=== PATIENT | male | born 1955 ===

== ENCOUNTER 2017-08-20 17:59 | Emergency (ER) | payer OTHER, SELFPAY ==
[2017-08-20 18:49] VITALS: BP 130/80; PULSE 78; RESP 18; TEMP 98; O2SAT 98
--- NOTE | 2017-08-20 20:42 | ED PDOC ---
HPI: General Adult Time Seen by Provider: 08/20/17 20:27 Chief Complaint (Nursing): Upper Extremity Problem/Injury Chief Complaint (Provider): Neck Pain History Per: Patient Additional Complaint(s): 62 year old non-domiciled male presents to ED for evaluation of neck pain ongoing for several months. Patient states a few months back he injured his neck and has had pain since then. Patient has not been taking any medicine for pain relief. PMD: none Past Medical History Reviewed: Historical Data, Nursing Documentation, Vital Signs Vital Signs: Last Vital Signs Temp 98 F 08/20/17 18:44 Pulse 78 08/20/17 18:44 Resp 18 08/20/17 18:44 BP 130/80 08/20/17 18:44 Pulse Ox 98 08/20/17 21:57 - Medical History PMH: No Chronic Diseases - Surgical History Surgical History: No Surg Hx - Family History Family History: States: No Known Family Hx - Living Arrangements Living Arrangements: Other (non-domiciled) - Social History Current smoker - smoking cessation education provided: No Alcohol: Occasional Drugs: Denies - Home Medications Home Medications: Ambulatory Orders Medication Instructions Recorded Nystatin/Triamcin 1 appful TP Q12 #1 oint...g. 03/26/15 [Nystatin-Triamcinolone Ointm] Gabapentin [Neurontin] 300 mg PO TID #30 cap 08/10/17 valACYclovir [Valtrex] 1 gm PO BID #14 tab 08/10/17 Cyclobenzaprine [Cyclobenzaprine 10 mg PO TID PRN #20 tab 08/20/17 HCl] Naproxen [Naprosyn] 500 mg PO BID #20 tab 08/20/17 - Allergies Allergies/Adverse Reactions: Allergies Allergy/AdvReac Type Severity Reaction Status Date / Time No Known Allergies Allergy Unverified 08/10/17 14:29 Review of Systems ROS Statement: Except As Marked, All Systems Reviewed And Found Negative Constitutional: Negative for: Fever Cardiovascular: Negative for: Chest Pain Musculoskeletal: Positive for: Neck Pain Neurological: Negative for: Headache, Dizziness Physical Exam - Reviewed Nursing Documentation Reviewed: Yes Vital Signs Reviewed: Yes - Physical Exam Appears: Positive for: Non-toxic, No Acute Distress Head Exam: Positive for: ATRAUMATIC, NORMAL INSPECTION, NORMOCEPHALIC Skin: Positive for: Normal Color. Negative for: Rash Eye Exam: Positive for: Normal appearance Neck: Positive for: Pain On Movement Of Neck (kyphosis noted to cervical spine with diffuse tenderness posteriorly, palpable muscle spasm noted) Cardiovascular/Chest: Positive for: Regular Rate, Rhythm. Negative for: Chest Non Tender Respiratory: Positive for: Normal Breath Sounds. Negative for: Respiratory Distress Back: Negative for: Vertebral Tenderness Neurologic/Psych: Positive for: Alert, Oriented (x3) - ECG O2 Sat by Pulse Oximetry: 98 (RA) Pulse Ox Interpretation: Normal - Other Rad cervical spine x-ray X-Ray: Interpreted by Me, Viewed By Me X-Ray Interpretation: kyphosis with no fracture or dislocation Medical Decision Making Medical Decision Making: Time: 2032 Initial Impression: 62 year old male with neck pain Initial Plan: --Cervical Spine AP & Lateral [RAD] --Patient given Flexeril 10mg and Motrin 600mg Patient noted to fall asleep in ED chair. He is aware of x-ray results. Prescriptions for Naprosyn and Flexeril provided and patient was referred to clinic for follow-up. Scribe Attestation: Documented by Jonas Kat, acting as a scribe for Nora Palma PA-C Provider Scribe Attestation: All medical record entries made by the Scribe were at my direction and personally dictated by me. I have reviewed the chart and agree that the record accurately reflects my personal performance of the history, physical exam, medical decision making, and the department course for this patient. I have also personally directed, reviewed, and agree with the discharge instructions and disposition. Disposition - Clinical Impression Clinical Impression: Neck pain - Patient ED Disposition Is Patient to be Admitted: No Counseled Patient/Family Regarding: Studies Performed, Diagnosis, Need For Followup, Rx Given - Disposition Referrals: [facility] [Outside] Disposition: Routine/Home Disposition Time: 21:38 Condition: STABLE Additional Instructions: Take prescription meds as directed as needed for pain. Follow-up with clinic for further evaluation. Prescriptions: Cyclobenzaprine [Cyclobenzaprine HCl] 10 mg PO TID PRN #20 tab PRN Reason: Muscle Spasm Naproxen [Naprosyn] 500 mg PO BID #20 tab Instructions: Chronic Neck Pain (DC) Forms: [employer] (Fijian)
--- NOTE | 2017-08-21 08:31 | RAD ---
PROCEDURE: Cervical Spine Radiographs. HISTORY: Pain. COMPARISON: None. FINDINGS: BONES: Reversal cervical curvature noted. No fracture. Dens Intact. Potential level scoliosis versus tilting of the head toward the right. DISC SPACES: Multilevel cervical spondylosis appreciated at the inferior cervical levels. Multilevel facet joint degenerative change are appreciated on a moderate basis. SOFT TISSUES: Normal. No prevertebral soft tissue swelling. OTHER FINDINGS: None. IMPRESSION: No fracture or spondylolisthesis appreciated. Reversal of curvature noted. Multilevel inferior cervical spondylosis. Diffuse facet joint degenerative change.
== END 2017-08-20 22:03 | disposition home or self-care (01) ==
LOC: H.ER 17:59
DX: S19.9XXA Unspecified injury of neck, initial encounter (principal); Y92.89 Other specified places as the place of occurrence of the external cause

== ENCOUNTER 2018-02-01 07:13 | Emergency (ER) | payer MEDICAID, OTHER, SELFPAY ==
[2018-02-01 07:24] VITALS: BMI 25.7
--- NOTE | 2018-02-01 08:00 | ED PDOC ---
HPI: General Adult Time Seen by Provider: 02/01/18 07:27 Chief Complaint (Nursing): Cough, Cold, Congestion Chief Complaint (Provider): Sore Throat, Green Phlegm History Per: Patient History/Exam Limitations: no limitations Onset/Duration Of Symptoms: Days (x1) Current Symptoms Are (Timing): Still Present Additional Complaint(s): 62 year old male presents to the ED for evaluation of a sore throat and spitting up green phlegm since yesterday associated with a subjective fever. Denies taking any medications, chest pain, shortness of breath, and cough. PMD: none provided Past Medical History Reviewed: Historical Data, Nursing Documentation, Vital Signs Vital Signs: Last Vital Signs Temp 99.4 F 02/01/18 07:25 Pulse 85 02/01/18 07:25 Resp 20 02/01/18 07:25 BP 131/79 02/01/18 07:25 Pulse Ox 96 02/01/18 07:25 - Medical History PMH: No Chronic Diseases - Surgical History Surgical History: No Surg Hx - Family History Family History: States: Unknown Family Hx - Social History Current smoker - smoking cessation education provided: Yes (some days) Alcohol: Social Drugs: Denies - Immunization History Hx Tetanus Toxoid Vaccination: No Hx Influenza Vaccination: No Hx Pneumococcal Vaccination: No - Home Medications Home Medications: Ambulatory Orders Medication Instructions Recorded Nystatin/Triamcin 1 appful TP Q12 #1 oint...g. 03/26/15 [Nystatin-Triamcinolone Ointm] Gabapentin [Neurontin] 300 mg PO TID #30 cap 08/10/17 valACYclovir [Valtrex] 1 gm PO BID #14 tab 08/10/17 Cyclobenzaprine [Cyclobenzaprine 10 mg PO TID PRN #20 tab 08/20/17 HCl] Naproxen [Naprosyn] 500 mg PO BID #20 tab 08/20/17 Azithromycin [Zithromax] 500 mg PO DAILY #3 tab 02/01/18 - Allergies Allergies/Adverse Reactions: Allergies Allergy/AdvReac Type Severity Reaction Status Date / Time No Known Allergies Allergy Unverified 08/10/17 14:29 Review of Systems ROS Statement: Except As Marked, All Systems Reviewed And Found Negative Constitutional: Positive for: Fever (subjective) ENT: Positive for: Throat Pain Cardiovascular: Negative for: Chest Pain Respiratory: Positive for: Sputum (green, spitting up). Negative for: Cough, Shortness of Breath Physical Exam - Reviewed Nursing Documentation Reviewed: Yes Vital Signs Reviewed: Yes - Physical Exam Appears: Positive for: No Acute Distress Head Exam: Positive for: ATRAUMATIC, NORMOCEPHALIC Skin: Positive for: Normal Color Eye Exam: Positive for: Normal appearance ENT: Positive for: Normal ENT Inspection. Negative for: Tonsillar Exudate, Tonsillar Swelling Neck: Positive for: Normal, Painless ROM, Supple Cardiovascular/Chest: Positive for: Regular Rate, Rhythm Respiratory: Positive for: Normal Breath Sounds. Negative for: Respiratory Distress Gastrointestinal/Abdominal: Positive for: Normal Exam, Soft. Negative for: Tenderness Neurologic/Psych: Positive for: Alert, Oriented (x3) - ECG O2 Sat by Pulse Oximetry: 96 (RA) Pulse Ox Interpretation: Normal Medical Decision Making Medical Decision Making: Time: 757 Initial Impression: pharyngitis Initial Plan: --Motrin 600mg PO ------ Scribe Attestation: Documented by Hilary Nesbitt acting as a scribe for Nhi Paez MD. Provider Scribe Attestation: All medical record entries made by the Scribe were at my direction and personally dictated by me. I have reviewed the chart and agree that the record accurately reflects my personal performance of the history, physical exam, medical decision making, and the department course for this patient. I have also personally directed, reviewed, and agree with the discharge instructions and disposition. Disposition - Clinical Impression Clinical Impression: Pharyngitis - Disposition Referrals: [facility] [Outside] Disposition: Routine/Home Disposition Time: 08:02 Condition: STABLE Prescriptions: Azithromycin [Zithromax] 500 mg PO DAILY #3 tab Instructions: Bacterial Upper Respiratory Infection, Adult Forms: [employer] ([employer]) Print Language: COMORAN
[2018-02-01 08:15] VITALS: BP 130/75; PULSE 80; RESP 16; TEMP 99.2
[2018-02-02 15:48] VITALS: O2SAT 96
== END 2018-02-01 08:16 | disposition home or self-care (01) ==
LOC: H.ER 07:13
DX: J02.9 Acute pharyngitis, unspecified (principal); F17.200 Nicotine dependence, unspecified, uncomplicated

== ENCOUNTER 2018-06-18 10:03 | Emergency (ER) | payer MEDICAID, OTHER ==
[2018-06-18 10:21] VITALS: BP 107/69; RESP 16
[2018-06-18 10:22] VITALS: BMI 18.5
[2018-06-18] MEDS ORDERED: Naproxen 500 MG TAB PO STA (10:59)
--- NOTE | 2018-06-18 11:06 | ED PDOC ---
HPI: General Adult Time Seen by Provider: 06/18/18 10:38 Chief Complaint (Nursing): Pain, Chronic Chief Complaint (Provider): Posterior neck pain and stiffness x 1 year History Per: Patient History/Exam Limitations: no limitations Onset/Duration Of Symptoms: Days Additional Complaint(s): 63 yo male with no medical problems presents for evaluation of continued posterior neck pain. PT was he fell over a year ago and has been having intermittent pain and tightness for the last year. PT states he was seen in ER and had a normal neck XR 1 year ago but states he feels like something is wrong with the bones since he now has decreased ROM. Pt states that he keeps his head down and when he attempts to lift his head the posterior pain and tightness is worse. PT states he also can only rotates his head to 45 degrees and not 90. PT denies numbness/tingling or radiation of pain. PT has not taken any medications for the pain in the last few months. Pt states he did not follow-up aftyer previous visit due to insurance issues. Past Medical History Reviewed: Historical Data, Nursing Documentation, Vital Signs Vital Signs: Last Vital Signs Temp 98 F 06/18/18 10:21 Pulse 87 06/18/18 10:21 Resp 16 06/18/18 10:21 BP 107/69 06/18/18 10:21 Pulse Ox 99 06/18/18 10:21 - Medical History PMH: No Chronic Diseases - Surgical History Surgical History: No Surg Hx - Family History Family History: States: Unknown Family Hx - Living Arrangements Living Arrangements: With Family - Social History Current smoker - smoking cessation education provided: No Alcohol: None Drugs: Denies - Immunization History Hx Tetanus Toxoid Vaccination: No Hx Influenza Vaccination: No Hx Pneumococcal Vaccination: No - Home Medications Home Medications: Ambulatory Orders Medication Instructions Recorded Nystatin/Triamcin 1 appful TP Q12 #1 oint...g. 03/26/15 [Nystatin-Triamcinolone Ointm] Gabapentin [Neurontin] 300 mg PO TID #30 cap 08/10/17 valACYclovir [Valtrex] 1 gm PO BID #14 tab 08/10/17 Cyclobenzaprine [Cyclobenzaprine 10 mg PO TID PRN #20 tab 08/20/17 HCl] Naproxen [Naprosyn] 500 mg PO BID #20 tab 08/20/17 Azithromycin [Zithromax] 500 mg PO DAILY #3 tab 02/01/18 Cyclobenzaprine [Cyclobenzaprine 10 mg PO Q8H #20 tab 06/18/18 HCl] Naproxen [Naprosyn] 500 mg PO BID PRN #20 tablet 06/18/18 - Allergies Allergies/Adverse Reactions: Allergies Allergy/AdvReac Type Severity Reaction Status Date / Time No Known Allergies Allergy Unverified 08/10/17 14:29 Review of Systems ROS Statement: Except As Marked, All Systems Reviewed And Found Negative Constitutional: Negative for: Fever, Chills Cardiovascular: Negative for: Chest Pain, Palpitations Respiratory: Negative for: Cough, Shortness of Breath, SOB with Exertion Gastrointestinal: Negative for: Nausea, Vomiting, Abdominal Pain Musculoskeletal: Positive for: Neck Pain. Negative for: Foot Pain Skin: Negative for: Lesions, Jaundice, Bruising Neurological: Negative for: Weakness, Numbness, Headache, Dizziness Physical Exam - Reviewed Nursing Documentation Reviewed: Yes Vital Signs Reviewed: Yes - Physical Exam Appears: Positive for: Well, Non-toxic, No Acute Distress Head Exam: Positive for: ATRAUMATIC, NORMAL INSPECTION, NORMOCEPHALIC Skin: Positive for: Normal Color, Warm, DRY Eye Exam: Positive for: Normal appearance ENT: Positive for: Normal ENT Inspection Neck: Positive for: Normal, Painless ROM Cardiovascular/Chest: Positive for: Regular Rate, Rhythm Respiratory: Positive for: Normal Breath Sounds. Negative for: Accessory Muscle Use, Respiratory Distress Back: Positive for: Normal Inspection Extremity: Positive for: Normal ROM Neurological/Psych: Positive for: Awake, Alert, Normal Tone - ECG O2 Sat by Pulse Oximetry: 99 Disposition - Clinical Impression Clinical Impression: Neck pain - Patient ED Disposition Is Patient to be Admitted: No Counseled Patient/Family Regarding: Diagnosis, Need For Followup, Rx Given - Disposition Referrals: Mango Knutson III, MD [Staff Provider] - Disposition: Routine/Home Disposition Time: 12:36 Condition: GOOD Prescriptions: Cyclobenzaprine [Cyclobenzaprine HCl] 10 mg PO Q8H #20 tab Naproxen [Naprosyn] 500 mg PO BID PRN #20 tablet PRN Reason: Pain Instructions: Chronic Neck Pain (DC) Forms: [employer] (Azeri)
[2018-06-18] MEDS ORDERED: Naproxen 500 MG TAB PO ONE (11:15)
[2018-06-18 13:02] VITALS: PULSE 80; TEMP 98.1; O2SAT 95
--- NOTE | 2018-06-18 13:30 | RAD ---
Date of service: 06/18/2018 PROCEDURE: Cervical Spine Radiographs. HISTORY: Posterior pain, decreased range of motion. No history of trauma. COMPARISON: 08/20/2017. Cervical spine radiographs 09/25/2017 CT cervical spine. TECHNIQUE: 3 views obtained. FINDINGS: BONES: Severe kyphosis. The point of maximum angulation is at C5-6. DISC SPACES: No appreciable degenerative change. SOFT TISSUES: Normal. No prevertebral soft tissue swelling. OTHER FINDINGS: None. IMPRESSION: Stable/severe kyphosis. No new/acute findings.
== END 2018-06-18 12:50 | disposition home or self-care (01) ==
LOC: H.ER 10:03
DX: M54.2 Cervicalgia (principal); Z79.899 Other long term (current) drug therapy